=== PATIENT | female | born 1970 | race Caucasian/White ===

== ENCOUNTER 2022-05-09 10:24 | Emergency (ER) | payer MEDICAID ==
[~2022-05-09] VITALS: Ht 162.6 cm; Wt 73.9 kg
[2022-05-09 10:50] VITALS: BP_SYST 142
--- NOTE | 2022-05-09 10:50 | NUR ---
Pt triaged and placed in waiting room pending MD salazar
--- NOTE | 2022-05-09 12:10 | NUR ---
Pt ambulatory to radiology; steady gait noted.
[2022-05-09 12:16] LABS: BASOPHILS # (AUTO) 0.1 K/uL (0.0-0.2); EOSINOPHILS % (AUTO) 0.1 % (0.0-4.0); HEMATOCRIT 32.4 % (36-48); HEMOGLOBIN 10.5 g/dL (12.0-16.0); LYMPHOCYTES # (AUTO) 2.1 K/uL (1.0-5.5); LYMPHOCYTES % (AUTO) 24.4 % (20.5-51.5); MEAN CORPUSCULAR HEMOGLOBIN 25 pg (27-31); MEAN CORPUSCULAR HGB CONC 32 % (32-36); MEAN CORPUSCULAR VOLUME 78 fL (79.0-98.0); MONOCYTES # (AUTO) 0.6 K/uL (0.0-1.0); NEUTROPHILS # (AUTO) 5.7 K/uL (1.8-7.7); NEUTROPHILS % (AUTO) 67.5 % (40.0-70.0); PLATELET COUNT (AUTO) 449 K/uL (130-430); RED BLOOD CELL COUNT(AUTO) 4.13 MIL/uL (4.2-6.2); RED CELL DISTRIBUTION WIDTH 16.6 % (9.0-15.0); WHITE BLOOD COUNT (AUTO) 8.4 K/uL (4.8-10.8)
[2022-05-09 12:24] LABS: ANION GAP 9 (5-15); CALCIUM 8.8 mg/dL (8.4-11.0); CHLORIDE 106 mmol/L (98-107); CREATININE 0.74 mg/dL (0.55-1.30); GLUCOSE 101 mg/dL (70-99); POTASSIUM 3.8 mmol/L (3.5-5.1); SODIUM SERUM 137 mmol/L (136-145); UREA NITROGEN, BLOOD 18 mg/dL (8-21)
[2022-05-09 12:25] LABS: GFR AFRICAN AMERICAN 106 mL/min (>90)
[2022-05-09 12:31] LABS: ALANINE AMINOTRANSFERASE 18 U/L (12-78); ALBUMIN 3.6 g/dL (3.4-4.8); ASPARTATE AMINOTRANSFERASE 15 U/L (10-37); TOTAL BILIRUBIN 0.5 mg/dL (0.0-1.0)
--- NOTE | 2022-05-09 12:58 | NUR ---
Patient to ER bed 3 for evaluation. Side rails up. Report given to Gene FINLEY.
[2022-05-09] MEDS ORDERED: KETOROLAC TROMETHAMINE 30 MG VIAL IM ONE (13:45)
--- NOTE | 2022-05-09 14:19 | NUR ---
Patient given written and verbal discharge instructions and verbalizes understanding. ER MD discussed with patient the results and treatment provided. Patient in stable condition. ID arm band removed. Patient educated on pain management and to follow up with PMD. Pain Scale 1/10. Opportunity for questions provided and answered. Medication side effect fact sheet provided.
[2022-05-09 14:21] VITALS: BP_SYST 135
== END 2022-05-09 14:21 | disposition home or self-care (01) ==
LOC: SED 10:24
DX: R07.9 Chest pain, unspecified (principal); M54.2 Cervicalgia; R42 Dizziness and giddiness
CPT/HCPCS: 36415; 71045; 80053; 81025; 84484; 85025; 93005; 96372; 99285; J1885

== ENCOUNTER 2023-01-16 13:02 | Emergency (ER) | payer MEDICAID | END 2023-01-16 19:30 | disposition left against medical advice (07) | LOC: SED 13:02 | DX: M54.2 Cervicalgia (principal); Z53.21 Procedure and treatment not carried out due to patient leaving prior to being seen by health care provider ==

== ENCOUNTER 2023-06-03 13:59 | Emergency (ER) | payer MEDICAID ==
[~2023-06-03] VITALS: Ht 162.6 cm; Wt 76.2 kg
[2023-06-03 14:11] VITALS: BP_SYST 149; PULSE 96; RESP 18; TEMP 98; O2SAT 99
[2023-06-03] MEDS ORDERED: BENZ100C92 PO (16:25)
[2023-06-03] MEDS ORDERED: TRAM50TA2 PO (16:25)
[2023-06-03] MEDS ORDERED: D-ME118S48 PO (16:25)
[2023-06-03 16:40] VITALS: BP_SYST 149; PULSE 96; RESP 18; TEMP 98; O2SAT 99
== END 2023-06-03 16:38 | disposition home or self-care (01) ==
LOC: SED 13:59
DX: J06.9 Acute upper respiratory infection, unspecified (principal); G89.29 Other chronic pain; M54.2 Cervicalgia; R05.9 Cough, unspecified; R11.10 Vomiting, unspecified; Z79.899 Other long term (current) drug therapy
CPT/HCPCS: 71045; 99283

== ENCOUNTER 2023-08-18 14:36 | Emergency (ER) | payer MEDICAID ==
[~2023-08-18] VITALS: Ht 162.6 cm; Wt 74.8 kg
[~2023-08-18 14:36] MED LIST: BENZ100C92 PO; BROM118S61 PO; TRAM50TA2 PO
[2023-08-18 15:01] VITALS: BP_SYST 128; PULSE 97; RESP 19; TEMP 97.5; O2SAT 99
[2023-08-18] MEDS ORDERED: KETOROLAC TROMETHAMINE 60 MG/2 ML VIAL IM ONE (15:45)
[2023-08-18 16:00] LABS: BASOPHILS # (AUTO) 0.1 K/uL (0.0-0.2); EOSINOPHILS # (AUTO) 0.2 K/uL (0.0-0.4); EOSINOPHILS % (AUTO) 1.8 % (0.0-4.0); HEMATOCRIT 37.3 % (36-48); HEMOGLOBIN 12.3 g/dL (12.0-16.0); LYMPHOCYTES # (AUTO) 2.4 K/uL (1.0-5.5); LYMPHOCYTES % (AUTO) 26.8 % (20.5-51.5); MEAN CORPUSCULAR HEMOGLOBIN 28 pg (27-31); MEAN CORPUSCULAR HGB CONC 33 % (32-36); MEAN CORPUSCULAR VOLUME 86 fL (79.0-98.0); MONOCYTES # (AUTO) 0.5 K/uL (0.0-1.0); MONOCYTES % (AUTO) 5.1 % (1.7-9.3); NEUTROPHILS # (AUTO) 5.9 K/uL (1.8-7.7); NEUTROPHILS % (AUTO) 65.3 % (40.0-70.0); PLATELET COUNT (AUTO) 411 K/uL (130-430); RED BLOOD CELL COUNT(AUTO) 4.36 MIL/uL (4.2-6.2); RED CELL DISTRIBUTION WIDTH 15.5 % (9.0-15.0); WHITE BLOOD COUNT (AUTO) 9.1 K/uL (4.8-10.8)
[2023-08-18 16:08] LABS: ERYTHROCYTE SEDIMENTATION RATE 23 MM/HR (0-20)
[2023-08-18 16:22] LABS: CALCIUM 8.6 mg/dL (8.4-11.0); CREATININE 0.76 mg/dL (0.55-1.30); POTASSIUM 3.6 mmol/L (3.5-5.1)
[2023-08-18 16:37] LABS: ALBUMIN 3.6 g/dL (3.4-4.8); TOTAL BILIRUBIN 0.9 mg/dL (0.0-1.0); TOTAL PROTEIN, SERUM 7.4 g/dL (6.4-8.3); URIC ACID 4.8 mg/dL (2.4-7.0)
[2023-08-18] MEDS ORDERED: IBUP-1969 PO (17:10)
[2023-08-18] MEDS ORDERED: TRAM50TA2 PO (17:10)
[2023-08-18 17:19] VITALS: BP_SYST 128; PULSE 97; RESP 19; TEMP 97.5; O2SAT 99
== END 2023-08-18 17:16 | disposition home or self-care (01) ==
LOC: SED 14:36
DX: M25.511 Pain in right shoulder (principal); Z79.899 Other long term (current) drug therapy
CPT/HCPCS: 99284; 80053; 84550; 85025; 85651; 36415; 73030; 96372; 82397; J1885